=== PATIENT | female | born 1990 | race African-American/Black ===

== ENCOUNTER 2023-08-05 10:02 | Day surgery (SDC) | payer OTHER ==
[~2023-08-05] VITALS: Ht 160 cm; Wt 88.2 kg
[~2023-08-05 10:02] MED LIST: ACETAMINOPHEN 1000MG 100ML IV BAG As Ordered ONE; DULO1CAP4 PO; ERGO500029 PO; HYDROmorphone HCL 2MG/ML 1ML VIAL As Ordered ONE; IBUP80TA PO; KETOROLAC 60MG 2ML VIAL As Ordered ONE; LIDOCAINE 2% 100MG/5ML SDV (FOR ANES.) As Ordered ONE; MELO15TA28 PO; METOCLOPRAMIDE INJ 10MG/2ML VIAL As Ordered ONE; MIDAZOLAM INJ 2MG/2ML VIAL As Ordered ONE; ONDANSETRON 4MG 2ML VIAL As Ordered ONE; ROCURONIUM BROMIDE 50MG/5ML VIAL As Ordered ONE; SUGAMMADEX SODIUM 500 MG/5 ML VIAL (BRIDION) As Ordered ONE; ceFAZolin SOD 2 GM in IV 1 EA IV ONE; fentaNYL 100 MCG/2 ML INJECTION As Ordered ONE; propofoL 200 MG/20 ML VIAL As Ordered ONE
[2023-08-05] MEDS ORDERED: LR 1,000 ML IV SCH ×3 (10:10→14:15)
[2023-08-05] MEDS ORDERED: GLYCOPYRROLATE INJ 0.2 MG/ML 2 ML VIAL As Ordered ONE (12:30)
[2023-08-05] MEDS ORDERED: propofoL 200 MG/20 ML VIAL As Ordered ONE (12:51)
[2023-08-05] MEDS ORDERED: HYDROMORPHONE HCL 0.5 MG/ 0.5 ML SYRINGE IV PRN (13:00)
[2023-08-05] MEDS ORDERED: fentaNYL 100 MCG/2 ML INJECTION IV PRN (13:00)
[2023-08-05] MEDS ORDERED: ONDANSETRON 4MG 2ML VIAL IV PRN (13:00)
[2023-08-05] MEDS ORDERED: oxyCODONE 5MG TAB PO PRN ×3 (13:00→14:15)
[2023-08-05] MEDS: MEPERIDINE 25 MG/ML 1ML VIAL IV PRN ×2 (13:48→14:20)
[2023-08-05] MEDS ORDERED: ONDANSETRON 4MG 2ML VIAL IV STA (17:34)
[2023-08-05 18:30] VITALS: BP 122/73; TEMP 97.8; O2SAT 99
== END 2023-08-05 13:25 | disposition home or self-care (01) ==
LOC: M SDC 10:02
PROVIDERS: ATTEND Obstetrics & Gynecology
DX: Z30.2 Encounter for sterilization (principal); N99.4 Postprocedural pelvic peritoneal adhesions
CPT/HCPCS: 36415; 58661; 81025; 86850; 86900; 86901; 88302; J0131; J0665; J1100; J1170; J1885; J2175; J2250; J2405; J2765; J3010

== ENCOUNTER → 2023-09-17 | Outpatient (CLI) | payer OTHER ==
[~2023-09-17] MED LIST changes: -ACETAMINOPHEN 1000MG 100ML IV BAG As Ordered ONE; -HYDROmorphone HCL 2MG/ML 1ML VIAL As Ordered ONE; -KETOROLAC 60MG 2ML VIAL As Ordered ONE; -LIDOCAINE 2% 100MG/5ML SDV (FOR ANES.) As Ordered ONE; -METOCLOPRAMIDE INJ 10MG/2ML VIAL As Ordered ONE; -MIDAZOLAM INJ 2MG/2ML VIAL As Ordered ONE; -ONDANSETRON 4MG 2ML VIAL As Ordered ONE; -ROCURONIUM BROMIDE 50MG/5ML VIAL As Ordered ONE; -SUGAMMADEX SODIUM 500 MG/5 ML VIAL (BRIDION) As Ordered ONE; -ceFAZolin SOD 2 GM in IV 1 EA IV ONE; -fentaNYL 100 MCG/2 ML INJECTION As Ordered ONE; -propofoL 200 MG/20 ML VIAL As Ordered ONE
== END ==
LOC: M RAD 16:49
PROVIDERS: ATTEND Nurse Practitioner Family
DX: G43.909 Migraine, unspecified, not intractable, without status migrainosus (principal)

== ENCOUNTER → 2023-09-30 | Outpatient (CLI) | payer OTHER ==
[~2023-09-30] MED LIST changes: +GASTROGRAFIN SOLUTION 30ML As Ordered ONE; +ISOVUE-370 76% 100ML VIAL As Ordered ONE
== END ==
LOC: M RAD 06:51
PROVIDERS: ATTEND Physician Assistant
DX: R10.11 Right upper quadrant pain (principal)

== ENCOUNTER → 2024-03-10 | Outpatient (REF) | payer OTHER ==
[~2024-03-10] MED LIST changes: -GASTROGRAFIN SOLUTION 30ML As Ordered ONE; -ISOVUE-370 76% 100ML VIAL As Ordered ONE
== END ==
LOC: M LAB REF 17:02
PROVIDERS: ATTEND Physician Assistant
DX: N39.0 Urinary tract infection, site not specified (principal)

== ENCOUNTER → 2024-04-01 | Outpatient (CLI) | payer OTHER | LOC: M RAD 09:51 | PROVIDERS: ATTEND Physician Assistant | DX: R10.10 Upper abdominal pain, unspecified (principal) ==

== ENCOUNTER → 2024-06-14 | Outpatient (CLI) | payer OTHER ==
[~2024-06-14] MED LIST changes: +AMIT50TA PO; +B-2100TA PO; +MAGN400T2 PO; +TOPI-21 PO; +TRAM50TA2 PO
== END ==
LOC: M RAD 11:32
PROVIDERS: ATTEND Physician Assistant
DX: Z22.7 Latent tuberculosis (principal)

== ENCOUNTER 2024-06-15 06:16 | Observation (INO) | payer OTHER ==
[2024-06-15] VITALS (7 sets, daily range): BP systolic 98–113; BP diastolic 59–68; TEMP 97.3–98.4; O2SAT 92–100
[~2024-06-15] VITALS: Ht 160 cm; Wt 89.8 kg
[~2024-06-15 06:16] MED LIST changes: -TRAM50TA2 PO
[2024-06-15] MEDS ORDERED: LR 1,000 ML IV SCH (06:35)
[2024-06-15] MEDS ORDERED: ROCURONIUM BROMIDE 50MG/5ML VIAL As Ordered ONE (06:58)
[2024-06-15] MEDS ORDERED: KETOROLAC 60MG 2ML VIAL As Ordered ONE (06:58)
[2024-06-15] MEDS ORDERED: ACETAMINOPHEN 1000MG 100ML IV BAG As Ordered ONE (06:58)
[2024-06-15] MEDS ORDERED: propofoL 200 MG/20 ML VIAL As Ordered ONE (06:58)
[2024-06-15] MEDS ORDERED: ONDANSETRON 4MG 2ML VIAL As Ordered ONE (06:58)
[2024-06-15] MEDS ORDERED: SUGAMMADEX SODIUM 500 MG/5 ML VIAL (BRIDION) As Ordered ONE (06:58)
[2024-06-15] MEDS ORDERED: MIDAZOLAM INJ 2MG/2ML VIAL As Ordered ONE (06:59)
[2024-06-15] MEDS ORDERED: LIDOCAINE 2% 100MG/5ML SDV (FOR ANES.) As Ordered ONE (06:59)
[2024-06-15] MEDS ORDERED: HYDROmorphone HCL 2MG/ML 1ML VIAL As Ordered ONE (06:59)
[2024-06-15] MEDS ORDERED: KETAMINE HCL 200MG/20ML VIAL As Ordered ONE (07:00)
[2024-06-15] MEDS: LIDOCAINE 1% MDV 20ML VIAL As Ordered ONE (07:10)
[2024-06-15] MEDS ORDERED: SCOPOLAMINE 1MG TRANSDERMAL PATCH As Ordered ONE (07:10)
[2024-06-15] MEDS: EPINEPHrine INJ 1 MG/ML 1ML AMP As Ordered ONE (07:10)
[2024-06-15] MEDS ORDERED: HOME MED LIST COMPLETE! XX SCH (07:25)
[2024-06-15] MEDS: ceFAZolin SOD 2 GM in IV 1 EA IV ONE (08:10)
[2024-06-15] MEDS: HEPARIN SOD (PORCINE) 5000UNITS/ML 1ML VIAL/SYRINGE SQ ONE (08:24)
[2024-06-15] MEDS ORDERED: dexmedeTOMIDine (4MCG/ML)200MCG/50ML BTL (PRECEDEX) As Ordered ONE (08:35)
[2024-06-15] MEDS: GENTAMICIN SULF 80MG/2ML VIAL As Ordered ONE (10:11)
[2024-06-15] MEDS ORDERED: ONDANSETRON 4MG 2ML VIAL IV PRN (12:15)
[2024-06-15] MEDS ORDERED: HYDROMORPHONE HCL 0.5 MG/ 0.5 ML SYRINGE IV PRN (12:15)
[2024-06-15] MEDS: LR 1,000 ML IV SCH ×2 (12:15→16:49)
[2024-06-15] MEDS ORDERED: oxyCODONE 5MG TAB PO PRN (12:15)
[2024-06-15] MEDS ORDERED: fentaNYL 100 MCG/2 ML INJECTION IV PRN (12:15)
[2024-06-15] MEDS ORDERED: fentaNYL 100 MCG/2 ML INJECTION As Ordered ONE (12:17)
[2024-06-15] MEDS ORDERED: PERCOCET 5MG/325MG TAB PO PRN (12:25)
[2024-06-15] MEDS ORDERED: ACETAMINOPHEN TAB 650MG DOSE (2X325MG) PO PRN (12:25)
[2024-06-15] MEDS: ceFAZolin SOD 2 GM in IV 1 EA IV SCH (16:49)
[2024-06-15] MEDS: ONDANSETRON 4MG 2ML VIAL IV PRN (18:26)
[2024-06-15] MEDS: traMADol 50 MG TAB PO PRN (20:27)
[2024-06-16 02:00] VITALS: BP 107/60; TEMP 97.5; O2SAT 99
[2024-06-16 06:04] VITALS: BP 106/62; TEMP 97.7; O2SAT 97
[2024-06-16 08:29] VITALS: BP 107/62; TEMP 98.2; O2SAT 100
[2024-06-16] MEDS ORDERED: TRAM50TA2 PO (10:20)
[2024-06-16 13:35] VITALS: BP 105/65; TEMP 97.9; O2SAT 97
== END 2024-06-16 14:30 | disposition home or self-care (01) ==
LOC: M SDC 06:16 → M ED INP 06:17 → M MS5PR 13:35
PROVIDERS: ADMIT Plastic Surgery Surgery of the Hand; ATTEND Plastic Surgery Surgery of the Hand
DX: N62 Hypertrophy of breast (principal); G43.909 Migraine, unspecified, not intractable, without status migrainosus; F41.9 Anxiety disorder, unspecified; Z79.899 Other long term (current) drug therapy
CPT/HCPCS: 19318; 81025; 88305; 96365; 96366; 96375; 96376; C9290; J0131; J0665; J0690; J1100; J1170; J1580; J1885; J2250; J2405; J3010

== ENCOUNTER → 2025-08-25 | Outpatient (CLI) | payer OTHER ==
[~2025-08-25] MED LIST changes: +TRAM50TA2 PO
== END ==
LOC: M RAD 15:36
PROVIDERS: ATTEND Nurse Practitioner Family
DX: E07.9 Disorder of thyroid, unspecified (principal)